=== PATIENT | male | born 1975 | race Caucasian/White ===

== ENCOUNTER 2020-10-06 13:02 | Emergency (ER) | payer OTHER, SELFPAY ==
--- NOTE | 2020-10-06 13:07 | ED.GENADULT ---
HPI - General Adult General Chief complaint: Wound/Laceration Stated complaint: cut left thumb Time Seen by Provider: 10/06/20 13:08 Source: patient Mode of arrival: ambulatory Limitations: no limitations History of Present Illness HPI narrative: 45-year-old male patient presents to the [facility] of the [facility] with complaints of lacerations of the left thumb. Patient states that he was laying anh using a razor to cut the anh and actually cut the left arm. Patient unaware of when his last tetanus shot was. Patient states he did cut what he calls a chunk of skin off of the thumb. Patient denies any history of diabetes or medical issues at this time. Related Data Allergies Allergy/AdvReac Type Severity Reaction Status Date / Time No Known Allergies Allergy Unverified 07/08/16 16:18 Review of Systems Review of Systems: Narrative: CONSTITUTIONAL: Denies fever, chills, or sweats. EYES: Denies visual changes, redness, or discharge. ENT: Denies rhinorrhea, congestion, sore throat, or otalgia. CARDIOVASCULAR: Denies chest pain, palpitations, or edema. RESPIRATORY: Denies cough or dyspnea. GASTROINTESTINAL: Denies abdominal pain, nausea, vomiting, or diarrhea. GENITOURINARY: Denies dysuria or hematuria. SKIN: Denies rash or itching. Positive laceration to left thumb MUSCULOSKELETAL: Denies back pain, joint pain, or myalgia. NEUROLOGIC: Denies headache, numbness, or weakness. PSYCHIATRIC: Denies anxiety or depression. [facility] Surgical History Surgical History (Updated 10/06/20 @ 13:08 by FOREST Olson) S/P laser cataract surgery Comments At the time of my signature I agree with nursing past medical history, surgical, social, and family history. There is no relevant family history pertinent to the presenting complaint. Exam Narrative: Exam Narrative: GENERAL: Well-appearing, well-nourished, and in no acute distress. HEAD: Normocephalic, atraumatic. EYES: PERRLA and EOMI. ENT: Nares clear, no rhinorrhea or epistaxis. Mucous membranes moist. NECK: Supple. No lymphadenopathy CHEST: Clear to auscultation. No respiratory distress. HEART: Regular rate and rhythm. No murmur heard. Normal peripheral pulses. ABDOMEN: Soft, nontender, nondistended, normal active bowel sounds. EXTREMITIES: Normal range of motion. No edema. SKIN: Warm, dry, no rash. Patient has an avulsion laceration noted to the medial side of the left thumb. Measures approximately 3 cm. Patient does have some bleeding at this time. NEURO: No focal deficits. Alert and oriented x3. Course Vital Signs Vital signs: Vital Signs Temperature 37.2 C 10/06/20 13:19 Pulse Rate 72 10/06/20 13:19 Respiratory Rate 16 10/06/20 13:19 Blood Pressure 146/88 H 10/06/20 13:19 Pulse Oximetry 99 10/06/20 13:19 Temperature 37.2 C 10/06/20 13:19 Pulse Rate 72 10/06/20 13:19 Respiratory Rate 16 10/06/20 13:19 Blood Pressure 146/88 H 10/06/20 13:19 Pulse Oximetry 99 10/06/20 13:19 Vital signs reviewed The patient has been informed that they may have pre-hypertension or Hypertension based on a BP reading in the department. I recommend that the patient call the primary care provider listed on their discharge instructions or a physician of their choice this week to arrange follow up for further evaluation of possible pre-hypertension or Hypertension Procedures Laceration Laceration 1: Date: 10/06/20 Time: 13:37 Site: hand (Thumb) Side (If applicable): left Size (cm): 3 Description: other (Avulsion) Depth: simple, single layer Local Anesthetic: none Pre-repair: wound explored and irrigated ====== Skin Level ====== Skin layer closed with: other (Surgicel) ====== Subcutaneous Layer ====== ====== Muscle Layer ====== ====== Tendon Layer ====== Dressing: The wound to the left thumb was cleansed with surgical scrub and sterile water. Pressure dressing was
[2020-10-06 13:19] VITALS: BP 146/88; PULSE 72; RESP 16; TEMP 37.2; O2SAT 99
[2020-10-06] MEDS: TETANUS,DIPHTHERIA,AC PERTUSSIS ADULT (0.5 ML) BOOSTRIX IM (13:22)
== END 2020-10-06 13:54 | disposition home or self-care (01) ==
PROVIDERS: Emergency Provider Nurse Practitioner Family
DX: S61.012A Laceration without foreign body of left thumb without damage to nail, initial encounter (principal); W26.8XXA Contact with other sharp object(s), not elsewhere classified, initial encounter
CPT/HCPCS: 12002; 90471; 90715; 99213; G0463

== ENCOUNTER 2024-01-16 13:33 | Outpatient (CLI) | payer OTHER, SELFPAY ==
--- NOTE | 2024-01-17 10:17 | WPDPFTINT ---
PFT Procedure Performed PFT Procedure Performed Plethysmography (Lung Vol) Diffusing Cap (DLCO) Flow Vol Loop Spirometry w/o Bronchodil PFT Interpretation Lung volumes were measured with the body plethysmography method. Lung volumes are unremarkable. Spirometry showed diminished FEV1 and a normal FEV1 to FVC ratio 73%. No post bronchodilator study was conducted. Lung diffusion capacity is within the normal range. The restrictive pattern spirometry in conjunction with a normal total lung capacity suggests nonspecific pattern. The flow-volume loop is unremarkable Impression: Nonspecific pattern. Lung diffusion capacity within the normal range.
== END 2024-01-16 13:34 | disposition home or self-care (01) ==
DX: Z00.01 Encounter for general adult medical examination with abnormal findings (principal)
CPT/HCPCS: 94375; 94726; 94729

== ENCOUNTER 2024-02-13 15:37 | Outpatient (CLI) | payer OTHER, SELFPAY ==
--- NOTE | ~2024-02-13 | XR_ITS ---
EXAMINATION: XR chest 2V Exam Date/Time: 02/13/2024 15:41 CDT HISTORY: No chest complaints, yearly physical Comparison: None. RESULT: Lines, tubes, and devices: None. Lungs and pleura: Granulomatous calcification, otherwise clear. Cardiomediastinal silhouette: Calcified right hilar lymph node, otherwise unremarkable. Other: No acute osseous or upper abdominal finding. IMPRESSION: No acute cardiopulmonary process. Reviewed, dictated and finalized at location K.
== END 2024-02-13 15:38 ==
DX: Z00.01 Encounter for general adult medical examination with abnormal findings (principal)
CPT/HCPCS: 71046